=== PATIENT | female | born 1995 | race Two or more races ===

== ENCOUNTER 2024-11-24 14:11 | Outpatient (AMB) | payer MEDICAID, SELFPAY ==
[2024-11-24 14:31] VITALS: BP 119/77; PULSE 77; RESP 16; TEMP 36.2; O2SAT 98
--- NOTE | 2024-11-24 14:31 | AMB.OBINITIA ---
Vital Signs 11/24/24 14:31 Weight 79.379 kg Weight Measurement Method Standing Scale BP 119/77 Blood Pressure Source Automatic Cuff Blood Pressure Location Left Upper Arm Position Sitting Respiration 16 Pulse 77 Pulse Source Monitor Temp 97.2 F Temp Source Oral Pulse Oximetry (%) 98 Oxygen Delivery Method Room Air Allergies/Home Meds Allergies & Medications Allergies Penicillins Allergy (Unknown, Verified 11/24/24 14:34) Medication Reconciliation Vitamin * 1 tab PO QDAY #30 tabs 01/17/14 [Rx Confirmed 11/24/24] blood sugar diagnostic (Blood Glucose Test strips) #10 ea 11/24/24 [Rx] blood-glucose meter #1 ea 11/24/24 [Rx] lancets #100 ea 11/24/24 [Rx] vits no.126-ferrous fum 28 mg iron-folic acid 800 mcg tablet (Classic ) 1 tab PO DAILY 90 days #90 tabs 11/24/24 [Rx] Intake Visit Data Collection New Patient or Established: Established Patient (seen at [facility] within 3 years) Reason for Visit:: OB TRASNFER FROM [place] NO RECORDS IS 36 WEEKS Seen by Clinical Staff ONLY (RN/MA): No Engineering Project Designer Required: Yes Engineering Project Designer's name/title: KARLOS HALL MA Do You Feel Safe at Home: Yes Authorities Contacted: N/A PCP or OBGYN visit in last 3 months: Yes Hx Now: Yes Are you currently on any form of Control: No Pain Present Currently: No Pain Scale Used: Hamilton-Saeed/Numerical Pain scale:: 0 Smoking Status Smoking Status: Never smoker Questionnaires Covid-19 Vaccine Questionnaire Has patient been vacinated for Covid-19 Have you been vacinated for Covid-19: No PHQ-9 PHQ-2 Over the last 2 weeks, how often have you been bothered by any of the following problems? 1. Little interest or pleasure in doing things: not at all 2. Feeling down, depressed, or hopeless: not at all Total score: 0 PHQ-9 3. Trouble falling or staying asleep, or sleeping too much: Not at all 4. Feeling tired or having little energy: Not at all 5. Poor appetite or overeating: Not at all 6. Feeling bad about yourself - or that you are a failure or have let yourself or your family down: Not at all 7. Trouble concentrating on things, such as reading the newspaper or watching television: Not at all 8. Moving or speaking so slowly that other people could have noticed? - Or the opposite - being so fidgety or restless that you have been moving around a lot more than usual: not at all 9. Thoughts that you would be better off or of hurting yourself in some way: Not at all Total score: 0 If you checked off any problems, how difficult have these problems made it for you to do your work, take care of things at home, or get along with other people?: not difficult at all Source: Developed by Drs. Marquis Lugo, Bindu Jeffries, Raghavendra Espinosa and colleagues, with an educational pedro from [employer]. Depression screen completed yes Social History Living Situation History Marital Status: Single Lives With: Family Housing: House Tobacco History Smoking Status: Never smoker Second Hand Smoke Exposure: No Alcohol History Alcohol Intake: Never Domestic Abuse History Do You Feel Safe at Home: Yes OB Initial Visit OB Flowsheet OB Flowsheet Initial Weight: Not Recorded Date <del>?</del> EGA Weight BP Alb Glu CTX Pres Fundal ht FHR Mov Dilation Station Effacement Hx Notes Visit Note 11/24/24 <del>?</del> 35w 2d 79.379 kg 119/77 cephalic 36 145 active one hour GTT is 201 on 11/13/2024 c/w GDM Menstrual History Menstrual reliability: definite Flow: normal Menstrual regularity: irregular Monthly: No Age at menarche: 8 On control pills at conception: No OB History : 2 Para: 1 Hx # Pregnancies: 0 Hx Total # of Abortions (Spontaneous & Elective): 0 # of Living Children: 1 Delivery History 1st : Child's name: WILLIAM BAER date: 01/16/14 sex: female Delivery type: vaginal History of depression before or after : No Infection History & Risk Evaluation History of STDs: none HIV risk evaluation: low risk Hepatitis B risk evaluation: low risk Patient or partner has history of Genital Herpes: No Varicella/chicken pox status: immunized Genetic Screening & History Genetic Screening/Teratology Counseling - Includes patient, baby's father, or anyone in either family with: 1. Patient's age 35 years or older as of estimated date of delivery: No 2. Thalassemia (Syriac, Samoan, Mediterranean, or Background); MCV less than 80: No 3. Neural Tube Defect (Meningomyelocele, Spina Bifida, or Anencephaly): No 4. Congenital Heart Defect: No 5. Down Syndrome: No 6. Raji-Sachs (Ashkenazi Evangelical, Cajun, Chadian [place]): No 7. Isabel Disease (Ashkenazi Evangelical): No 8. Familial Dysautonomia (Ashkenazi Evangelical): No 9. Sickle Cell Disease or Trait (): No 10. Hemophilia or other blood disorders: No 11. Muscular Dystrophy: No 12. Cystic Fibrosis: No 13. Karen's Chorea: No 14. Mental Retardation/Autism: No 15. Other inherited genetic or chromosomal disorder: No 16. Maternal Metabolic Disorder (EG,TYPE 1 Diabetes, PKU): No 17. Patient or baby's father had a child with defects not listed above: No 18. Recurrent loss or a stillbirth: No 19. Medications (including supplements, vitamins, herbs or otc drugs)/illicit/recreational drugs/alcohol since last menstrual period: No 20. Any other: No Infection History 1. Live with someone with TB or exposed to TB: No 2. Rash or viral illness since last menstrual period: No 3. Hepatitis B,C: No Other (see comments) Source: [employer] Office Procedures OBC Clinic LOC & Office Proc's Nursing/Assessment Patient Status: Established Patient OB Clinic Nursing Assessment: Medication Reconciliation, Update PMH in EMR and Vital Signs OB Clinic Coordination of Care: Consent,records obtained, informed consent, Education Simp Pt/Fam, Lab and Imaging orders, Results/Orders obtained and Staff clarify orders Special Needs: Heart tones Established Patient Charge Established Patient Point Assignment: 110 Established Patient Point Charge: EP Level 3 (80-115) Assessment & Plan Diagnosis / Problem List (1) : Status: Acute (2) GDM (gestational diabetes mellitus): Status: Acute Plan Assessment IUP at 35.2 weeks gestational age in a 29 years old additional diagnoses GDM based on 1 hour GTT done 11/13/2024 Plan diet fo GDM ordeed glucometer and lancets and sugar log schedule for learning with Romi labs next vist HbAic refer for weekly NST and for Ob Us now education/counselling on GDM medications PNV and glucometer / lancets and strips GBS today / intake came later / needs Gc and Ct testing next week NST biweekly ordered Follow up 1 week
== END 2024-11-24 14:51 | disposition home or self-care (01) ==
PROVIDERS: PCP Nurse Practitioner; Referring Provider Nurse Practitioner; Supervising Provider Obstetrics & Gynecology; Visit Provider Obstetrics & Gynecology
DX: O09.893 Supervision of other high risk pregnancies, third trimester (principal); O24.410 Gestational diabetes mellitus in pregnancy, diet controlled; Z3A.35 35 weeks gestation of pregnancy
CPT/HCPCS: 99213; G0463

== ENCOUNTER 2024-12-02 13:46 | Outpatient (AMB) | payer MEDICAID, SELFPAY ==
--- NOTE | 2024-12-02 13:56 | AMB.OBVISIT ---
Vital Signs 12/02/24 14:03 Height 1.5 m Height Method Stated Weight 78.075 kg Weight Measurement Method Standing Scale BMI 34.7 BP 120/80 Blood Pressure Source Automatic Cuff Blood Pressure Location Left Upper Arm Position Sitting Respiration 16 Pulse 86 Pulse Source Monitor Temp 97.2 F Temp Source Oral Pulse Oximetry (%) 98 Oxygen Delivery Method Room Air Allergies/Home Meds Allergies & Medications Allergies Penicillins Allergy (Unknown, Verified 12/02/24 14:04) Medication Reconciliation Vitamin * 1 tab PO QDAY #30 tabs 01/17/14 [Rx Confirmed 12/02/24] blood sugar diagnostic (Blood Glucose Test strips) #10 ea 11/24/24 [Rx Confirmed 12/02/24] blood-glucose meter #1 ea 11/24/24 [Rx Confirmed 12/02/24] lancets #100 ea 11/24/24 [Rx Confirmed 12/02/24] vits no.126-ferrous fum 28 mg iron-folic acid 800 mcg tablet (Classic ) 1 tab PO DAILY 90 days #90 tabs 11/24/24 [Rx Confirmed 12/02/24] metformin 500 mg tablet 500 mg PO BID #60 tabs 12/02/24 [Rx] Intake Visit Data Collection New Patient or Established: Established Patient (seen at [facility] within 3 years) Reason for Visit:: CARE Seen by Clinical Staff ONLY (RN/MA): No Administrative Specialist Required: Yes Administrative Specialist's name/title: KARLOS HALL Do You Feel Safe at Home: Yes Authorities Contacted: N/A PCP or OBGYN visit in last 3 months: Yes Hx Now: Yes Are you currently on any form of Control: No Pain Present Currently: No Pain Scale Used: Hamilton-Saeed/Numerical Pain scale:: 0 Smoking Status Smoking Status: Never smoker Immunizations Flu Vaccine in the Last 12 Months: No Flu Vaccine Exclusion Criteria: No Exclusion Criteria Questionnaires Covid-19 Vaccine Questionnaire Has patient been vacinated for Covid-19 Have you been vacinated for Covid-19: Yes PHQ-9 PHQ-2 Over the last 2 weeks, how often have you been bothered by any of the following problems? 1. Little interest or pleasure in doing things: not at all 2. Feeling down, depressed, or hopeless: not at all Total score: 0 PHQ-9 3. Trouble falling or staying asleep, or sleeping too much: Not at all 4. Feeling tired or having little energy: Not at all 5. Poor appetite or overeating: Not at all 6. Feeling bad about yourself - or that you are a failure or have let yourself or your family down: Not at all 7. Trouble concentrating on things, such as reading the newspaper or watching television: Not at all 8. Moving or speaking so slowly that other people could have noticed? - Or the opposite - being so fidgety or restless that you have been moving around a lot more than usual: not at all 9. Thoughts that you would be better off or of hurting yourself in some way: Not at all Total score: 0 Source: Developed by Drs. Marquis Lugo, Bindu Jeffries, Raghavendra Espinosa and colleagues, with an educational pedro from [employer]. Depression screen completed yes Social History Living Situation History Lives With: Family Housing: House Tobacco History Smoking Status: Never smoker Second Hand Smoke Exposure: No Alcohol History Alcohol Intake: Never Domestic Abuse History Do You Feel Safe at Home: Yes Review of Systems Review of Systems Systems Reviewed: All systems reviewed, normal except as documented Care OB Visit Log OB Flowsheet Initial Weight: Not Recorded Date <del>?</del> EGA Weight BP Alb Glu CTX Pres Fundal ht FHR Mov Dilation Station Effacement Hx Notes Visit Note 11/24/24 <del>?</del> 35w 2d 79.379 kg 119/77 cephalic 36 145 active one hour GTT is 201 on 11/13/2024 c/w GDM 12/02/24 <del>?</del> 36w 3d 78.075 kg 120/80 cephalic 37 144 active GBS positive Order HbA1c Glucose log reviewed / elevated postprandials / start metformin 500 mg po BID Start NST biweekly follow up in 1 week SAIRA Calculator Estimated Delivery Date Method Current WG Current Estimate 12/27/24 Manual 36w 3d Notes Visit Date: 12/02/24 Last Updated by: Carrie Oshea MD 36.3 weeks today GDM late diagnosis and was started on glucose monitoring last visit/ her post prandial sugars are high / dietary advice given and started on Metformin 500 mgm po BID start testing as well biweekly NST Her US is scheduled this Sunday at [facility] /Continue sugar log GBS done last visit and is positive Visit Date: 11/24/24 Last Updated by: Carrie Oshea MD Patient had 1 hour GTT she does not need a 3-hour because she is already over 1 2/200 so she got gestational diabetes , order lancets and glucometer and follow up with sugar log 2 para 1, care in [place], no records available, states the EDC is December 27, no prior surgery, denies any medical or obstetrical problems By ultrasound today BPD is consistent with 36 weeks Labs done at [place] on 11/13/2024 c/w i hour GTT is 201 c/w GDM Start on diet and glucose monitoring follow up in 1 week Needs US for weight and also HbAic next visit heart rate is 151 bpm amniotic fluid normal placenta anterior, no previa GBS collected today Vertex presentation on ultrasound needs labs Labor precautions given /Kick count explained labs ordered follow up in 1 week for normal amniot what I can doic fluid on US okay Exam Narrative Physical exam: Alert and oriented x 3 no shortness of breath Pain no chest pain no palpitations Chest clear bilaterally no additional sounds, no wheezing no rales CVS regular rate and rhythm No CVAT Abdomen nontender, normal bowel sounds No guarding no rigidity No hernias Office Procedures OBC Clinic LOC & Office Proc's Nursing/Assessment Patient Status: Established Patient OB Clinic Nursing Assessment: Medication Reconciliation, Update PMH in EMR and Vital Signs OB Clinic Coordination of Care: Complex Care and Chronic Disease 1-5, Consent,records obtained, informed consent, Education Simp Pt/Fam, 1 Ins Authorization, Lab and Imaging orders, Results/Orders obtained and Staff clarify orders Special Needs: Heart tones Established Patient Charge Established Patient Point Assignment: 150 Established Patient Point Charge: EP Level 4 (120-155) Assessment & Plan Diagnosis / Problem List (1) GDM (gestational diabetes mellitus): Status: Acute (2) : Status: Acute (3) Late care affecting in third trimester: Status: Acute Assessment and Plan: 36.3 weeks today GDM late diagnosis and was started on glucose monitoring last visit/ her post prandial sugars are high / dietary advice given and started on Metformin 500 mgm po BID start testing as well biweekly NST Her US is scheduled this Sunday at [facility] /Continue sugar log GBS done last visit and is positive and will need GBS prophylaxis in labor Follow up in 1 week Additional Plan Follow Up: 1 1 Week
[2024-12-02 14:03] VITALS: BP 120/80; PULSE 86; RESP 16; TEMP 36.2; O2SAT 98; BMI 34.7
== END 2024-12-02 14:20 | disposition home or self-care (01) ==
LOC: HODSOBC 13:46
PROVIDERS: Supervising Provider Obstetrics & Gynecology; Visit Provider Obstetrics & Gynecology
DX: O09.33 Supervision of pregnancy with insufficient antenatal care, third trimester (principal); O09.893 Supervision of other high risk pregnancies, third trimester; O24.415 Gestational diabetes mellitus in pregnancy, controlled by oral hypoglycemic drugs; O99.820 Streptococcus B carrier state complicating pregnancy; Z3A.36 36 weeks gestation of pregnancy; Z88.0 Allergy status to penicillin
CPT/HCPCS: 99214; G0463

== ENCOUNTER 2024-12-11 12:58 | Outpatient (AMB) | payer MEDICAID, SELFPAY ==
[2024-12-11 13:05] VITALS: BP 109/75; PULSE 73; RESP 18; TEMP 36.4; O2SAT 98; BMI 34.5
--- NOTE | 2024-12-11 13:05 | AMB.OBVISIT ---
Vital Signs 12/11/24 13:05 Height 1.5 m Height Method Stated Weight 77.791 kg Weight Measurement Method Standing Scale BMI 34.5 BP 109/75 Blood Pressure Source Automatic Cuff Blood Pressure Location Right Upper Arm Position Sitting Respiration 18 Pulse 73 Pulse Source Monitor Temp 97.5 F Temp Source Temporal Artery Scan Pulse Oximetry (%) 98 Oxygen Delivery Method Room Air Allergies/Home Meds Allergies & Medications Allergies Penicillins Allergy (Unknown, Verified 12/11/24 13:06) Medication Reconciliation Vitamin * 1 tab PO QDAY #30 tabs 01/17/14 [Rx Confirmed 12/11/24] blood sugar diagnostic (Blood Glucose Test strips) #10 ea 11/24/24 [Rx Confirmed 12/11/24] blood-glucose meter #1 ea 11/24/24 [Rx Confirmed 12/11/24] lancets #100 ea 11/24/24 [Rx Confirmed 12/11/24] vits no.126-ferrous fum 28 mg iron-folic acid 800 mcg tablet (Classic ) 1 tab PO DAILY 90 days #90 tabs 11/24/24 [Rx Confirmed 12/11/24] metformin 500 mg tablet 500 mg PO BID #60 tabs 12/02/24 [Rx Confirmed 12/11/24] Intake Visit Data Collection New Patient or Established: Established Patient (seen at [facility] within 3 years) Reason for Visit:: OBC Seen by Clinical Staff ONLY (RN/MA): Yes Machine Heel Seat Laster Required: Yes Machine Heel Seat Laster's name/title: KARLOS HALL MA Do You Feel Safe at Home: Yes Authorities Contacted: N/A PCP or OBGYN visit in last 3 months: Yes Date of Last PCP or OBGYN visit: 12/11/24 Hx Now: Yes Are you currently on any form of Control: No Pain Present Currently: Yes Pain Location: Back Pain Scale Used: Hamilton-Saeed/Numerical Pain scale:: 2 Smoking Status Smoking Status: Never smoker Immunizations Flu Vaccine in the Last 12 Months: No Flu Vaccine Exclusion Criteria: No Exclusion Criteria Questionnaires Covid-19 Vaccine Questionnaire Has patient been vacinated for Covid-19 Have you been vacinated for Covid-19: No PHQ-9 PHQ-2 Over the last 2 weeks, how often have you been bothered by any of the following problems? 1. Little interest or pleasure in doing things: not at all 2. Feeling down, depressed, or hopeless: not at all Total score: 0 PHQ-9 3. Trouble falling or staying asleep, or sleeping too much: Not at all 4. Feeling tired or having little energy: Not at all 5. Poor appetite or overeating: Not at all 6. Feeling bad about yourself - or that you are a failure or have let yourself or your family down: Not at all 7. Trouble concentrating on things, such as reading the newspaper or watching television: Not at all 8. Moving or speaking so slowly that other people could have noticed? - Or the opposite - being so fidgety or restless that you have been moving around a lot more than usual: not at all 9. Thoughts that you would be better off or of hurting yourself in some way: Not at all Total score: 0 If you checked off any problems, how difficult have these problems made it for you to do your work, take care of things at home, or get along with other people?: not difficult at all Source: Developed by Drs. Marquis Lugo, Bindu Jeffries, Raghavendra Espinosa and colleagues, with an educational pedro from [employer]. Depression screen completed yes Social History Living Situation History Marital Status: Lives With: Family Housing: House Tobacco History Smoking Status: Never smoker Second Hand Smoke Exposure: No Alcohol History Alcohol Intake: Never Domestic Abuse History Do You Feel Safe at Home: Yes Care OB Visit Log OB Flowsheet Initial Weight: Not Recorded Date <del>?</del> EGA Weight BP Alb Glu CTX Pres Fundal ht FHR Mov Dilation Station Effacement Hx Notes Visit Note 11/24/24 <del>?</del> 35w 2d 79.379 kg 119/77 cephalic 36 145 active one hour GTT is 201 on 11/13/2024 c/w GDM 12/02/24 <del>?</del> 36w 3d 78.075 kg 120/80 cephalic 37 144 active GBS positive Order HbA1c Glucose log reviewed / elevated postprandials / start metformin 500 mg po BID Start NST biweekly follow up in 1 week 12/11/24 <del>?</del> 37w 5d 77.791 kg 109/75 cephalic 38 150 active 0 -3 0 SAIRA Calculator Estimated Delivery Date Method Current WG Current Estimate 12/27/24 Manual 37w 5d Notes Visit Date: 12/11/24 Last Updated by: Carrie Oshea MD 36.3 weeks today GDM late diagnosis and was started on glucose monitoring last visit/ her post prandial sugars are high / dietary advice given and started on Metformin 500 mgm po BID start testing as well biweekly NST / BPP today was 09/19 / Order US for EFW at radiology and also called L&D to add EFW to next BPP as patient is high risk she states her fastings are around 90's & Post prandials are between 120 to 140 . she forgot to bring the sugar log She is closed thick and high today Needs US for EFW from radiology . Will order Her US is scheduled this Sunday at [facility] /Continue sugar log GBS done last visit and is positive Visit Date: 12/02/24 Last Updated by: Carrie Oshea MD 36.3 weeks today GDM late diagnosis and was started on glucose monitoring last visit/ her post prandial sugars are high / dietary advice given and started on Metformin 500 mgm po BID start testing as well biweekly NST Her US is scheduled this Sunday at [facility] /Continue sugar log GBS done last visit and is positive Visit Date: 11/24/24 Last Updated by: Carrie Oshea MD Patient had 1 hour GTT she does not need a 3-hour because she is already over 1 2/200 so she got gestational diabetes , order lancets and glucometer and follow up with sugar log 2 para 1, care in [place], no records available, states the EDC is December 27, no prior surgery, denies any medical or obstetrical problems By ultrasound today BPD is consistent with 36 weeks Labs done at [place] on 11/13/2024 c/w i hour GTT is 201 c/w GDM Start on diet and glucose monitoring follow up in 1 week Needs US for weight and also HbAic next visit heart rate is 151 bpm amniotic fluid normal placenta anterior, no previa GBS collected today Vertex presentation on ultrasound needs labs Labor precautions given /Kick count explained labs ordered follow up in 1 week for normal amniot what I can doic fluid on US okay Office Procedures OBC Clinic LOC & Office Proc's Nursing/Assessment Patient Status: Established Patient OB Clinic Nursing Assessment: Medication Reconciliation, Update PMH in EMR and Vital Signs OB Clinic Coordination of Care: Complex Care and Chronic Disease 1-5, Education Complex Pt/Fam, Consent,records obtained, informed consent and Staff clarify orders Special Needs: Heart tones Established Patient Charge Established Patient Point Assignment: 120 Established Patient Point Charge: EP Level 4 (120-155) Assessment & Plan Diagnosis / Problem List (1) GDM (gestational diabetes mellitus): Status: Acute Qualifiers: Gestational diabetes mellitus control: oral hypoglycemic-controlled Trimester: third trimester Qualified Code(s): O24.415 - Gestational diabetes mellitus in , controlled by oral hypoglycemic drugs (2) Late care affecting in third trimester: Status: Acute Additional Plan add EFW to next US Kick count Biweekly NST/BPP and follow up in 1 week labor precautions Ordered Ob Us for EFW Follow Up: 1 Week
== END 2024-12-11 13:47 | disposition home or self-care (01) ==
LOC: HODSOBC 12:58
PROVIDERS: Supervising Provider Obstetrics & Gynecology; Visit Provider Obstetrics & Gynecology
DX: O09.893 Supervision of other high risk pregnancies, third trimester (principal); O24.415 Gestational diabetes mellitus in pregnancy, controlled by oral hypoglycemic drugs; O09.33 Supervision of pregnancy with insufficient antenatal care, third trimester; Z3A.37 37 weeks gestation of pregnancy; Z88.0 Allergy status to penicillin
CPT/HCPCS: 99214; G0463

== ENCOUNTER 2024-12-15 08:55 | Outpatient (AMB) | payer MEDICAID, SELFPAY ==
--- NOTE | 2024-12-15 09:14 | OBCLNT_ITS ---
Vital Signs 12/15/24 09:15 12/15/24 09:41 Height 1.5 m Height Method Stated Weight 79.095 kg Weight Measurement Method Standing Scale BMI 35.1 BP 117/76 117/76 Blood Pressure Source Automatic Cuff Blood Pressure Location Right Upper Arm Position Sitting Respiration 18 18 Pulse 83 83 Pulse Source Monitor Temp 97.4 F 97.4 F Temp Source Temporal Artery Scan Pulse Oximetry (%) 98 98 Oxygen Delivery Method Room Air Allergies/Home Meds Allergies & Medications Allergies Penicillins Allergy (Unknown, Verified 12/15/24 09:16) Medication Reconciliation Vitamin * 1 tab PO QDAY #30 tabs 01/17/14 [Rx Confirmed 12/15/24] blood sugar diagnostic (Blood Glucose Test strips) #10 ea 11/24/24 [Rx Confirmed 12/15/24] blood-glucose meter #1 ea 11/24/24 [Rx Confirmed 12/15/24] lancets #100 ea 11/24/24 [Rx Confirmed 12/15/24] vits no.126-ferrous fum 28 mg iron-folic acid 800 mcg tablet (Classic ) 1 tab PO DAILY 90 days #90 tabs 11/24/24 [Rx Confirmed 12/15/24] metformin 500 mg tablet 500 mg PO BID #60 tabs 12/02/24 [Rx Confirmed 12/15/24] blood sugar diagnostic (Blood Glucose Test strips) #30 ea 12/15/24 [Rx] Intake Visit Data Collection New Patient or Established: Established Patient (seen at [facility] within 3 years) Reason for Visit:: OBC Seen by Clinical Staff ONLY (RN/MA): No Plant Floor Automation Manager Required: Yes Plant Floor Automation Manager's name/title: KARLOS HALL MA Do You Feel Safe at Home: Yes Authorities Contacted: N/A PCP or OBGYN visit in last 3 months: Yes Date of Last PCP or OBGYN visit: 12/11/24 Hx Now: Yes Are you currently on any form of Control: No Pain Present Currently: No Pain Scale Used: Hamilton-Saeed/Numerical Pain scale:: 0 Smoking Status Smoking Status: Never smoker Immunizations Flu Vaccine in the Last 12 Months: No Flu Vaccine Exclusion Criteria: No Exclusion Criteria Questionnaires Covid-19 Vaccine Questionnaire Has patient been vacinated for Covid-19 Have you been vacinated for Covid-19: No PHQ-9 PHQ-2 Over the last 2 weeks, how often have you been bothered by any of the following problems? 1. Little interest or pleasure in doing things: not at all 2. Feeling down, depressed, or hopeless: not at all Total score: 0 PHQ-9 3. Trouble falling or staying asleep, or sleeping too much: Not at all 4. Feeling tired or having little energy: Not at all 5. Poor appetite or overeating: Not at all 6. Feeling bad about yourself - or that you are a failure or have let yourself or your family down: Not at all 7. Trouble concentrating on things, such as reading the newspaper or watching television: Not at all 8. Moving or speaking so slowly that other people could have noticed? - Or the opposite - being so fidgety or restless that you have been moving around a lot more than usual: not at all 9. Thoughts that you would be better off or of hurting yourself in some way: Not at all Total score: 0 If you checked off any problems, how difficult have these problems made it for you to do your work, take care of things at home, or get along with other people?: not difficult at all Source: Developed by Drs. Marquis Lugo, Bindu Jeffries, Raghavendra Espinosa and colleagues, with an educational pedro from [employer]. Depression screen completed yes Social History Living Situation History Marital Status: Lives With: Family Housing: House Tobacco History Smoking Status: Never smoker Second Hand Smoke Exposure: No Alcohol History Alcohol Intake: Never Domestic Abuse History Do You Feel Safe at Home: Yes Care OB Visit Log OB Flowsheet Initial Weight: Not Recorded Date -?-?-?-?-?-?-?-?-?-?-?-?- EGA Weight BP Alb Glu CTX Pres Fundal ht FHR Mov Dilation Station Effacement Hx Notes Visit Note 11/24/24 -?-?-?-?-?-?-?-?-?-?-?-?- 35w 2d 79.379 kg 119/77 cephalic 36 145 active one hour GTT is 201 on 11/13/2024 c/w GDM 12/02/24 -?-?-?-?-?-?-?-?-?-?-?-?- 36w 3d 78.075 kg 120/80 cephalic 37 144 active GBS positive Order HbA1c Glucose log reviewed / elevated postpran dials / start metformin 500 mg po BID Start NST biweekly follow up in 1 week 12/11/24 -?-?-?-?-?-?-?-?-?-?-?-?- 37w 5d 77.791 kg 109/75 cephalic 38 150 active 0 -3 0 12/15/24 -?-?-?-?-?-?-?-?-?-?-?-?- 38w 2d 79.095 kg 117/76 117/76 cephalic 40 146 active SAIRA Calculator Estimated Delivery Date Method Current WG Current Estimate 12/27/24 Manual 38w 2d Notes Visit Date: 12/15/24 Last Updated by: Homer Oshea MD 38.2 weeks today GDM late diagnosis and was started on glucose monitoring / her post prandial sugars are high / dietary advice given and started on Metformin 500 mgm po BID start testing as well biweekly NST / BPP today was 09/19 / Order US for EFW at radiology and also called L&D to add EFW to next BPP as patient is high risk size is LGA Plan IOL at 39 weeks / in the books for 12/22/2024 / Biweekly NST and BPP and also Complete ob today / refill test strips [facility] [address] [place] [address] [facility] Report Signed Patient: STELLA CORRAL [facility]. Record#: [id number] Birthdate: 1995 Age/Sex: 29 / F Location: [facility] Attending Dr: Homer Oshea MD Ordering Physician: HOMER OSHEA MD Date of Service: 12/11/24 Procedure(s): US OB biophysical profile Accession Number(s): [id number] cc: HOMER OSHEA MD; Keven Duff MD; Linda Lee NP~ Examination: Biophysical profile, ultrasound Date and time of exam: December 11, 2024, 1043 hours INDICATIONS: Diagnosis gestational diabetes Technique: Multiple transabdominal sonographic images of the pelvis abdomen obtained. Attention is directed to the breathing movement, gross body movement, amniotic fluid volume and tone. Findings: Amniotic fluid index 7.3 cm Total biophysical profile is 8 of 8. breathing movement is 2. Gross body movement is 2. tone is 2. Qualitative amniotic fluid volume is 2 Impression: Biophysical profile is 8 of 8. Dictated By: Keven Duff MD Signed By: <Electronically signed by Keven Duff MD in OV> 12/11/24 1148 DD/ 1148 TD/TT: 12/11/24 1148 School Operations Manager: TWM she states her fastings are around 90's & Post prandials are between 120 to 140 . she forgot to bring the sugar log She is closed thick and high on 12/11/2024 Needs US for EFW from radiology . Will order Her US is scheduled this Sunday at [facility] /Continue sugar log GBS done last visit and is positive Visit Date: 12/02/24 Last Updated by: Homer Oshea MD 38.2 weeks today GDM late diagnosis and was started on glucose monitoring / her post prandial sugars are high / dietary advice given and started on Metformin 500 mgm po BID start testing as well biweekly NST Her US is scheduled this Sunday at [facility] /Continue sugar log GBS done last visit and is positive Visit Date: 11/24/24 Last Updated by: Homer Oshea MD Patient had 1 hour GTT she does not need a 3-hour because she is already over 1 2/200 so she got gestational diabetes , order lancets and glucometer and follow up with sugar log 2 para 1, care in [place], no records available, states the EDC is December 27, no prior surgery, denies any medical or obstetrical problems By ultrasound today BPD is consistent with 36 weeks Labs done at [place] on 11/13/2024 c/w i hour GTT is 201 c/w GDM Start on diet and glucose monitoring follow up in 1 week Needs US for weight and also HbAic next visit heart rate is 151 bpm amniotic fluid normal placenta anterior, no previa GBS collected today Vertex presentation on ultrasound needs labs Labor precautions given /Kick count explained labs ordered follow up in 1 week for normal amniotic fluid on US okay Visit Date: 12/11/24 Last Updated by: Homer Oshea MD 36.3 weeks today GDM late diagnosis and was started on glucose monitoring last visit/ her post prandial sugars are high / dietary advice given and started on Metformin 500 mgm po BID start testing as well biweekly NST / BPP today was 09/19 / Order US for EFW at radiology and also called L&D to add EFW to next BPP as patient is high risk she states her fastings are around 90's & Post prandials are between 120 to 140 . she forgot to bring the sugar log She is closed thick and high today Needs US for EFW from radiology . Will order Her US is scheduled this Sunday at [facility] /Continue sugar log GBS done last visit and is positive Visit Date: 12/02/24 Last Updated by: Homer Oshea MD 36.3 weeks today GDM late diagnosis and was started on glucose monitoring last visit/ her post prandial sugars are high / dietary advice given and started on Metformin 500 mgm po BID start testing as well biweekly NST Her US is scheduled this Sunday at [facility] /Continue sugar log GBS done last visit and is positive Visit Date: 11/24/24 Last Updated by: Homer Oshea MD Patient had 1 hour GTT she does not need a 3-hour because she is already over 1 2/200 so she got gestational diabetes , order lancets and glucometer and follow up with sugar log 2 para 1, care in [place], no records available, states the EDC is December 27, no prior surgery, denies any medical or obstetrical problems By ultrasound today BPD is consistent with 36 weeks Labs done at [place] on 11/13/2024 c/w i hour GTT is 201 c/w GDM Start on diet and glucose monitoring follow up in 1 week Needs US for weight and also HbAic next visit heart rate is 151 bpm amniotic fluid normal placenta anterior, no previa GBS collected today Vertex presentation on ultrasound needs labs Labor precautions given /Kick count explained labs ordered follow up in 1 week for normal amniot what I can doic fluid on US okay Office Procedures OBC Clinic LOC & Office Proc's Nursing/Assessment Patient Status: Established Patient OB Clinic Nursing Assessment: Medication Reconciliation, Update PMH in EMR and Vital Signs OB Clinic Coordination of Care: Complex Care and Chronic Disease 1-5, Education Complex Pt/Fam, Consent,records obtained, informed consent, Results/Orders obtained and Staff clarify orders Special Needs: Heart tones Established Patient Charge Established Patient Point Assignment: 125 Established Patient Point Charge: EP Level 4 (120-155)
[2024-12-15 09:15] VITALS: BP 117/76; PULSE 83; RESP 18; TEMP 36.3; O2SAT 98; BMI 35.1
--- NOTE | 2024-12-15 09:38 | AMB.OBVISIT ---
Vital Signs 12/15/24 09:15 12/15/24 09:41 Height 1.5 m Height Method Stated Weight 79.095 kg Weight Measurement Method Standing Scale BMI 35.1 BP 117/76 117/76 Blood Pressure Source Automatic Cuff Blood Pressure Location Right Upper Arm Position Sitting Respiration 18 18 Pulse 83 83 Pulse Source Monitor Temp 97.4 F 97.4 F Temp Source Temporal Artery Scan Pulse Oximetry (%) 98 98 Oxygen Delivery Method Room Air Allergies/Home Meds Allergies & Medications Allergies Penicillins Allergy (Unknown, Verified 12/15/24 09:16) Medication Reconciliation Vitamin * 1 tab PO QDAY #30 tabs 01/17/14 [Rx Confirmed 12/15/24] blood sugar diagnostic (Blood Glucose Test strips) #10 ea 11/24/24 [Rx Confirmed 12/15/24] blood-glucose meter #1 ea 11/24/24 [Rx Confirmed 12/15/24] lancets #100 ea 11/24/24 [Rx Confirmed 12/15/24] vits no.126-ferrous fum 28 mg iron-folic acid 800 mcg tablet (Classic ) 1 tab PO DAILY 90 days #90 tabs 11/24/24 [Rx Confirmed 12/15/24] metformin 500 mg tablet 500 mg PO BID #60 tabs 12/02/24 [Rx Confirmed 12/15/24] Intake Visit Data Collection New Patient or Established: Established Patient (seen at [facility] within 3 years) Reason for Visit:: care Manager Winter Required: Yes Do You Feel Safe at Home: Yes Smoking Status Smoking Status: Never smoker Questionnaires Covid-19 Vaccine Questionnaire Has patient been vacinated for Covid-19 Have you been vacinated for Covid-19: No PHQ-9 PHQ-2 Over the last 2 weeks, how often have you been bothered by any of the following problems? 1. Little interest or pleasure in doing things: not at all PHQ-9 3. Trouble falling or staying asleep, or sleeping too much: Not at all 4. Feeling tired or having little energy: Not at all 5. Poor appetite or overeating: Not at all 6. Feeling bad about yourself - or that you are a failure or have let yourself or your family down: Not at all 7. Trouble concentrating on things, such as reading the newspaper or watching television: Not at all 8. Moving or speaking so slowly that other people could have noticed? - Or the opposite - being so fidgety or restless that you have been moving around a lot more than usual: not at all Total score: 0 If you checked off any problems, how difficult have these problems made it for you to do your work, take care of things at home, or get along with other people?: not difficult at all Source: Developed by Drs. Marquis Lugo, Bindu Jeffries, Raghavendra Espinosa and colleagues, with an educational pedro from [employer]. Social History Living Situation History Marital Status: Lives With: Family Housing: House Tobacco History Smoking Status: Never smoker Second Hand Smoke Exposure: No Alcohol History Alcohol Intake: Never Domestic Abuse History Do You Feel Safe at Home: Yes History of Present Illness HPI Narrative 29 years old at 38.2 weeks today GDM on Metformin and diet and not keeping her sugar logs states ran out of strips Plan Ob US today during her NST and BPP for EFW Review of Systems Review of Systems Systems Reviewed: All systems reviewed, normal except as documented (feels pelvic pressure ) Care OB Visit Log OB Flowsheet Initial Weight: Not Recorded Date <del>?</del> EGA Weight BP Alb Glu CTX Pres Fundal ht FHR Mov Dilation Station Effacement Hx Notes Visit Note 11/24/24 <del>?</del> 35w 2d 79.379 kg 119/77 cephalic 36 145 active one hour GTT is 201 on 11/13/2024 c/w GDM 12/02/24 <del>?</del> 36w 3d 78.075 kg 120/80 cephalic 37 144 active GBS positive Order HbA1c Glucose log reviewed / elevated postprandials / start metformin 500 mg po BID Start NST biweekly follow up in 1 week 12/11/24 <del>?</del> 37w 5d 77.791 kg 109/75 cephalic 38 150 active 0 -3 0 12/15/24 <del>?</del> 38w 2d 79.095 kg 117/76 117/76 cephalic 40 146 active SAIRA Calculator Estimated Delivery Date Method Current WG Current Estimate 12/27/24 Manual 38w 2d Notes Visit Date: 12/15/24 Last Updated by: Homer Oshea MD 38.2 weeks today GDM late diagnosis and was started on glucose monitoring / her post prandial sugars are high / dietary advice given and started on Metformin 500 mgm po BID start testing as well biweekly NST / BPP today was 09/19 / Order US for EFW at radiology and also called L&D to add EFW to next BPP as patient is high risk size is LGA Plan IOL at 39 weeks / in the books for 12/22/2024 / Biweekly NST and BPP and also Complete ob today / refill test strips [facility] [address] [place] [address] [facility] Report Signed Patient: STELLA CORRAL. Record#: [id number] Birthdate: 1995 Age/Sex: 29 / F Location: [facility] Attending Dr: Homer Oshea MD Ordering Physician: HOMER OSHEA MD Date of Service: 12/11/24 Procedure(s): US OB biophysical profile Accession Number(s): [id number] cc: HOMER OSHEA MD; Keven Duff MD; Linda Lee NP~ Examination: Biophysical profile, ultrasound Date and time of exam: December 11, 2024, 1043 hours INDICATIONS: Diagnosis gestational diabetes Technique: Multiple transabdominal sonographic images of the pelvis abdomen obtained. Attention is directed to the breathing movement, gross body movement, amniotic fluid volume and tone. Findings: Amniotic fluid index 7.3 cm Total biophysical profile is 8 of 8. breathing movement is 2. Gross body movement is 2. tone is 2. Qualitative amniotic fluid volume is 2 Impression: Biophysical profile is 8 of 8. Dictated By: Keven Duff MD Signed By: <Electronically signed by Keven Duff MD in OV> 12/11/24 1148 DD/ 1148 TD/TT: 12/11/24 1148 Nick[place]: TWAniket she states her fastings are around 90's & Post prandials are between 120 to 140 . she forgot to bring the sugar log She is closed thick and high on 12/11/2024 Needs US for EFW from radiology . Will order Her US is scheduled this Sunday at [facility] /Continue sugar log GBS done last visit and is positive Visit Date: 12/02/24 Last Updated by: Homer Oshea MD 38.2 weeks today GDM late diagnosis and was started on glucose monitoring / her post prandial sugars are high / dietary advice given and started on Metformin 500 mgm po BID start testing as well biweekly NST Her US is scheduled this Sunday at [facility] /Continue sugar log GBS done last visit and is positive Visit Date: 11/24/24 Last Updated by: Homer Oshea MD Patient had 1 hour GTT she does not need a 3-hour because she is already over 1 2/200 so she got gestational diabetes , order lancets and glucometer and follow up with sugar log 2 para 1, care in [place], no records available, states the EDC is December 27, no prior surgery, denies any medical or obstetrical problems By ultrasound today BPD is consistent with 36 weeks Labs done at [place] on 11/13/2024 c/w i hour GTT is 201 c/w GDM Start on diet and glucose monitoring follow up in 1 week Needs US for weight and also HbAic next visit heart rate is 151 bpm amniotic fluid normal placenta anterior, no previa GBS collected today Vertex presentation on ultrasound needs labs Labor precautions given /Kick count explained labs ordered follow up in 1 week for normal amniotic fluid on US okay Visit Date: 12/11/24 Last Updated by: Homer Oshea MD 36.3 weeks today GDM late diagnosis and was started on glucose monitoring last visit/ her post prandial sugars are high / dietary advice given and started on Metformin 500 mgm po BID start testing as well biweekly NST / BPP today was 09/19 / Order US for EFW at radiology and also called L&D to add EFW to next BPP as patient is high risk she states her fastings are around 90's & Post prandials are between 120 to 140 . she forgot to bring the sugar log She is closed thick and high today Needs US for EFW from radiology . Will order Her US is scheduled this Sunday at [facility] /Continue sugar log GBS done last visit and is positive Visit Date: 12/02/24 Last Updated by: Homer Oshea MD 36.3 weeks today GDM late diagnosis and was started on glucose monitoring last visit/ her post prandial sugars are high / dietary advice given and started on Metformin 500 mgm po BID start testing as well biweekly NST Her US is scheduled this Sunday at [facility] /Continue sugar log GBS done last visit and is positive Visit Date: 11/24/24 Last Updated by: Homer Oshea MD Patient had 1 hour GTT she does not need a 3-hour because she is already over 1 2/200 so she got gestational diabetes , order lancets and glucometer and follow up with sugar log 2 para 1, care in [place], no records available, states the EDC is December 27, no prior surgery, denies any medical or obstetrical problems By ultrasound today BPD is consistent with 36 weeks Labs done at [place] on 11/13/2024 c/w i hour GTT is 201 c/w GDM Start on diet and glucose monitoring follow up in 1 week Needs US for weight and also HbAic next visit heart rate is 151 bpm amniotic fluid normal placenta anterior, no previa GBS collected today Vertex presentation on ultrasound needs labs Labor precautions given /Kick count explained labs ordered follow up in 1 week for normal amniot what I can doic fluid on US okay
[2024-12-15 09:41] VITALS: BP 117/76; PULSE 83; RESP 18; TEMP 36.3; O2SAT 98
== END 2024-12-15 09:48 | disposition home or self-care (01) ==
LOC: HODSOBC 08:55
PROVIDERS: Supervising Provider Obstetrics & Gynecology; Visit Provider Obstetrics & Gynecology
DX: O09.893 Supervision of other high risk pregnancies, third trimester (principal); O24.415 Gestational diabetes mellitus in pregnancy, controlled by oral hypoglycemic drugs; Z3A.38 38 weeks gestation of pregnancy; Z88.0 Allergy status to penicillin
CPT/HCPCS: 99214; G0463

== ENCOUNTER 2024-12-18 10:43 | Outpatient (RCR) | payer MEDICAID, SELFPAY ==
--- NOTE | 2024-12-04 11:01 | XR_ITS ---
Examination: Biophysical profile, ultrasound Date and time of exam: December 04, 2024, 1102 hours INDICATIONS: Diagnosis gestational diabetes Technique: Multiple transabdominal sonographic images of the pelvis abdomen obtained. Attention is directed to the breathing movement, gross body movement, amniotic fluid volume and tone. Findings: Amniotic fluid index 15.9 cm Total biophysical profile is 8 of 8. breathing movement is 2. Gross body movement is 2. tone is 2. Qualitative amniotic fluid volume is 2 Impression: Biophysical profile is 8 of 8.
[2024-12-04 11:51] VITALS: BP 121/82; PULSE 73; RESP 18; TEMP 36.6
--- NOTE | 2024-12-08 10:57 | XR_ITS ---
Examination: Biophysical profile, ultrasound Date and time of exam: December 08, 2024, 1126 hours INDICATIONS: Diagnosis gestational diabetes Technique: Multiple transabdominal sonographic images of the pelvis abdomen obtained. Attention is directed to the breathing movement, gross body movement, amniotic fluid volume and tone. Findings: Amniotic fluid index 6.8 cm Total biophysical profile is 8 of 8. breathing movement is 2. Gross body movement is 2. tone is 2. Qualitative amniotic fluid volume is 2 Impression: Biophysical profile is 8 of 8.
[2024-12-08 11:46] VITALS: BP 106/65; PULSE 77; RESP 16; TEMP 36.9
--- NOTE | 2024-12-11 10:58 | XR_ITS ---
Examination: Biophysical profile, ultrasound Date and time of exam: December 11, 2024, 1043 hours INDICATIONS: Diagnosis gestational diabetes Technique: Multiple transabdominal sonographic images of the pelvis abdomen obtained. Attention is directed to the breathing movement, gross body movement, amniotic fluid volume and tone. Findings: Amniotic fluid index 7.3 cm Total biophysical profile is 8 of 8. breathing movement is 2. Gross body movement is 2. tone is 2. Qualitative amniotic fluid volume is 2 Impression: Biophysical profile is 8 of 8.
[2024-12-11 12:12] VITALS: BP 122/76; PULSE 71; RESP 16; TEMP 36.7
--- NOTE | 2024-12-15 08:23 | XR_ITS ---
EXAMINATION: age Limited TECHNIQUE: Limited transabdominal sonographic images pelvis Date and time: December 15, 2024, 10:50 a.m. INDICATIONS: Unknown weight FINDINGS: Viable intrauterine gestation. Cephalic presentation. Estimated weight 3010.8 g Estimated age 36 weeks 5 days Cardiac motion 155 bpm IMPRESSION: Viable intrauterine gestation cephalic presentation Estimated weight 3010.8 g
--- NOTE | 2024-12-15 10:32 | XR_ITS ---
Examination: Biophysical profile, ultrasound Date and time of exam: December 15, 2024, 10:50 a.m. INDICATIONS: Diagnosis gestational diabetes Technique: Multiple transabdominal sonographic images of the pelvis abdomen obtained. Attention is directed to the breathing movement, gross body movement, amniotic fluid volume and tone. Findings: Amniotic fluid index 11.8 cm Total biophysical profile is 8 of 8. breathing movement is 2. Gross body movement is 2. tone is 2. Qualitative amniotic fluid volume is 2 Impression: Biophysical profile is 8 of 8.
[2024-12-15 11:18] VITALS: BP 105/65; PULSE 82; RESP 16; TEMP 36.7
--- NOTE | 2024-12-18 10:54 | XR_ITS ---
Examination: Biophysical profile, ultrasound Date and time of exam: 12/18/2024 at 11:18 a.m. INDICATION: Biweekly NST and BPP due to GDM. Comparison US BPP 12/15/2024 Technique: Multiple transabdominal sonographic images of the pelvis abdomen obtained. Attention is directed to the breathing movement, gross body movement, amniotic fluid volume and tone. Findings: Single live IUP in cephalic position. Total biophysical profile is 8 of 8. breathing movement is 2. Gross body movement is 2. tone is 2. Qualitative amniotic fluid volume is 2 VIVIANE: 7.2 cm. FHR: 153 bpm. Impression: Biophysical profile is 8 of 8 as before.
[2024-12-18 11:49] VITALS: BP 138/80; PULSE 91; RESP 16; TEMP 36.7
== END 2024-12-18 23:59 | disposition home or self-care (01) ==
LOC: S4S1 10:43
PROVIDERS: PCP Nurse Practitioner; Referring Provider Obstetrics & Gynecology; Visit Provider Obstetrics & Gynecology
DX: O24.415 Gestational diabetes mellitus in pregnancy, controlled by oral hypoglycemic drugs (principal); Z3A.38 38 weeks gestation of pregnancy
CPT/HCPCS: 59025; 76815; 76819

== ENCOUNTER 2024-12-18 21:43 | Observation (INO) | payer MEDICAID, SELFPAY ==
[2024-12-18] VITALS (12 sets, daily range): BP systolic 115–134; BP diastolic 70–91; PULSE 73–101; RESP 18–98; TEMP 36.7; O2SAT 98–99; BMI 36.5
[2024-12-19 00:05] VITALS: BP 123/82; PULSE 73
[2024-12-19 00:07] VITALS: BP 123/81; PULSE 81
== END 2024-12-19 00:13 | disposition home or self-care (01) ==
PROVIDERS: Admitting Provider Obstetrics & Gynecology; Visit Provider Obstetrics & Gynecology
DX: O47.1 False labor at or after 37 completed weeks of gestation (principal); Z3A.38 38 weeks gestation of pregnancy
CPT/HCPCS: 59025; 59899

== ENCOUNTER 2024-12-19 04:22 | Inpatient (IN) | payer MEDICAID, SELFPAY ==
[2024-12-19] VITALS (22 sets, daily range): BP systolic 103–136; BP diastolic 54–88; PULSE 43–167; RESP 18–98; TEMP 36.7–37; O2SAT 76–100; BMI 37.2
[2024-12-19] MEDS: RINGERS LACTATED 1000 ML 1,000 ML 100 ML IV ×2 (05:05→05:29)
[2024-12-19] MEDS: MINERAL OIL 30 ML UDC TOP (05:30)
[2024-12-19] MEDS: OXYTOCIN in NS 20 units 20 UNIT/1,000 ML BAG 125 UNIT IV (05:50)
[2024-12-19] MEDS: LIDOCAINE HCL 1% 20 ML VIAL INFL (05:54)
[2024-12-19] MEDS: BENZO/LANO/ALOE (Dermoplast) 60 GM CAN 1 SPRAY TOP (05:55)
--- NOTE | 2024-12-19 06:11 | ESHP_ITS ---
Documentation for date of: 12/19/24 OB Labor/Induct. HPI History of Present Illness : 2 Term pregnancies: 1 pregnancies: 0 Living children: 1 History of Abortions: Spontaneous and Elective: 0 History of Vaginal deliveries: 1 History of sections: No History of : No SAIRA: 12/27/24 Gestational Age (weeks): 38 Gestational Age (days): 6 History of present illness: came in labor at 8 to 9 cm dilation and is GDM on diet and metformin History of Present Dating criteria: based on LMP only Adequate Care: No Obstetrical complications: gestational diabetes Labs Labs: Positive: Rubella Titre and Group Beta Strep, Negative: RPR, Hepatitis B, HIV, Chlamydia and Gonorrhea and Unknown: Herpes Type 1, Herpes Type 2 and Covid-19 Review of Systems Review of Systems Systems Reviewed: All systems reviewed, normal except as documented Past Medical History Surgical History SURGICAL: Negative Section Meds Home Medications and Allergies Allergies Allergy/AdvReac Type Severity Reaction Status Date / Time No Known Allergies Allergy Verified 12/19/24 04:35 OB Exam Physical Exam Vital signs: Pulse BP Pulse Ox 111 H 122/55 L 86 L 12/19/24 05:59 12/19/24 05:59 12/19/24 05:57 Narrative: Size equal to dates uterus non tender moderate regular every 3 minutes , contractions non tender FHR is category 1 feta presentation is vertex EFW by 12/15/2024 US is 3.0 kg approx OB Results Labs 12/19/24 12:22 Impressions Impression: 29 years at 38.6 weeks , spontaneous labor / GBS positive , did not get prophylaxis as she came in close to delivery / Rh positive / GDM on diet / anticipate vaginal delivery OB Assessment & Plan Assessment and Plan (1) Late care affecting in third trimester: Status: Acute (2) GDM (gestational diabetes mellitus): Status: Acute (3) : Status: Acute Additional Plan Induction method: none Plan: anticipate NVD (2) GDM (gestational diabetes mellitus) Qualifiers: Gestational diabetes mellitus control: oral hypoglycemic-controlled T rimester: third trimester Qualified Code(s): O24.415 - Gestational diabetes mellitus in , controlled by oral hypoglycemic drugs (3) Qualifiers: Weeks of gestation: 38 weeks Qualified Code(s): Z3A.38 - 38 weeks gestation of
--- NOTE | 2024-12-19 06:19 | PD.LDDELS ---
Data ([facility]) Data Hx Section: No Maternal Blood Type: A Pos Rubella Titre: Positive RPR: Non-reactive Labs: Positive: Group Beta Strep : 2 Para: 1 Term: 1 : 0 Livin Abortions: Spontaneous & Theraputic: 0 Delivery Data ([facility]line) Labor Data Initiation of labor: Spontaneous Induction/Augmentation Agent: None ROM date: 12/19/24 ROM time: 05:02 Amniotic membrane rupture type: Spontaneous Amniotic fluid description: Clear Delivery Data Onset of labor date: 12/19/24 Onset of labor time: 01:00 Complete dilation date: 12/19/24 Complete dilation time: 05:20 delivery date: 12/19/24 delivery time: 05:50 Placenta delivery date: 12/19/24 Placenta delivery time: 05:53 Stage 1 total time: Labor - Stage 1 Duration 4 hours and 20 minutes Delivered by: FROY Delivery nurse: Shashi ADDISON RN [place] nurse: Randy HAILE RN Internal Communications Specialist at delivery: No Delivery Method Delivery method: Normal Vaginal Delivery Presentation: Vertex Anesthesia Type Anesthesia Type: Local Placenta Placenta delivery description: Spontaneous cord blood collection: Cord Blood Type Episiotomy Episiotomy description: None Umbilical Cord cord description: 3 Vessels Data ([facility]) Data order: 1 [place]'s gender: Male 1 minute: 9 5 minutes: 9 Additional Comments Additional comments: please see the RN note for details Patient delivered a vigorous , viable baby
[2024-12-19 06:24] LABS: Basophils # (Auto) 0.0 Thou/mm3 (0.0-0.2); Basophils % (Auto) 0 % (0-2.5); Eosinophils # (Auto) 0.0 Thou/mm3 (0.0-0.5); Eosinophils % (Auto) 0 % (0-10); Hematocrit 34.7 % (36.0-46.0); Hemoglobin 12.6 g/dL (12.0-16.0); Immature Granulocytes Auto 0.15 Thou/mm3 (0.00-0.00); Lymphocytes # (Auto) 1.3 Thou/mm3 (1.0-4.8); Lymphocytes % (Auto) 7 % (10-50); Mean Corpuscular HGB Conc 36.3 g/dl (31.0-37.0); Mean Corpuscular Hemoglobin 31.0 pg (25.0-35.0); Mean Corpuscular Volume 85 fL (80-100); Monocytes # (Auto) 0.7 Thou/mm3 (0.0-0.8); Monocytes % (Auto) 4 % (0-12); Neutrophils # (Auto) 16.1 Thou/mm3 (1.8-7.7); Neutrophils % (Auto) 88 % (37-80); Nucleated Red Blood Cell # 0.00 Thou/mm3 (0.00-0.00); Nucleated Red Blood Cell % 0 /100 WBC (0); Platelet Count 182 Thou/mm3 (140-440); RDW Standard Deviation 41.9 fL (36.4-46.3); Red Blood Count 4.07 Miln/mm3 (4.00-5.20); White Blood Count 18.3 Thou/mm3 (3.6-11.0)
[2024-12-19 07:00] LABS: Syphilis Nonreactive (Nonreactive)
[2024-12-19] MEDS: IBUPROFEN TAB 400 MG TABLET 800 MG PO ×2 (09:47→16:01)
[2024-12-19 12:45] LABS: Basophils # (Auto) 0.0 Thou/mm3 (0.0-0.2); Basophils % (Auto) 0 % (0-2.5); Eosinophils # (Auto) 0.1 Thou/mm3 (0.0-0.5); Eosinophils % (Auto) 0 % (0-10); Hematocrit 33.7 % (36.0-46.0); Hemoglobin 12.2 g/dL (12.0-16.0); Immature Granulocytes Auto 0.13 Thou/mm3 (0.00-0.00); Lymphocytes # (Auto) 1.1 Thou/mm3 (1.0-4.8); Lymphocytes % (Auto) 6 % (10-50); Mean Corpuscular HGB Conc 36.2 g/dl (31.0-37.0); Mean Corpuscular Hemoglobin 30.7 pg (25.0-35.0); Mean Corpuscular Volume 85 fL (80-100); Monocytes # (Auto) 0.9 Thou/mm3 (0.0-0.8); Monocytes % (Auto) 5 % (0-12); Neutrophils # (Auto) 16.0 Thou/mm3 (1.8-7.7); Neutrophils % (Auto) 88 % (37-80); Nucleated Red Blood Cell # 0.00 Thou/mm3 (0.00-0.00); Nucleated Red Blood Cell % 0 /100 WBC (0); Platelet Count 175 Thou/mm3 (140-440); RDW Standard Deviation 41.1 fL (36.4-46.3); Red Blood Count 3.98 Miln/mm3 (4.00-5.20); White Blood Count 18.1 Thou/mm3 (3.6-11.0)
[2024-12-20] VITALS: BP 106/68; PULSE 74; RESP 19; TEMP 36.6; O2SAT 97
[2024-12-20] MEDS: IBUPROFEN TAB 400 MG TABLET 800 MG PO ×3 (01:09→18:16)
[2024-12-20 01:25] LABS: Amphetamine/Metham Scrn,Ur OB Negative (Negative); Benzoylecgonine Screen, Ur OB Negative (Negative); Opiate Screen,Urine OB Negative (Negative); THC Screen,Urine OB Negative (Negative)
[2024-12-20 03:35] VITALS: BP 102/65; PULSE 81; RESP 17; TEMP 36.6; O2SAT 97
[2024-12-20 07:10] VITALS: BP 107/72; PULSE 76; RESP 18; TEMP 36.9; O2SAT 98
[2024-12-20] MEDS: PRENATAL VITAMIN/FE FUM/FA TABLET 1 TAB PO (08:13)
[2024-12-20 11:20] VITALS: BP 108/64; PULSE 74; RESP 18; TEMP 36.8; O2SAT 98
--- NOTE | 2024-12-20 11:25 | ESPR_ITS ---
Subjective Subjective Interval history: Patient doing well overall. Minimal discomfort- mostly in coccyx area. She is ambulating no lightheadedness/dizziness. Voiding spontaneously, no issues. Tolerating regular diet without nausea/vomiting. Lochia tapering as expected. No fevers/chills, no CP/SOB. Exam Vital Signs Temp Pulse Resp BP Pulse Ox O2 Del Method 98.5 F 76 18 107/72 98 Room Air 12/20/24 07:10 12/20/24 07:10 12/20/24 07:10 12/20/24 07:10 12/20/24 07:10 12/20/24 07:10 Narrative Exam General: well developed, well nourished, no acute distress, conversant Cardiac: normal heart rate Lungs: breathing without distress Abdomen: soft, post-gravid, non-tender, no rebound or guarding, Fundus firm at u-3cm. Extremities: no pain with palpation of calves, trace edema of BLE Objective Labs 12/19/24 12:22 Labs: Laboratory Results - last 24 hr 12/19/24 12/19/24 00:55 12:22 WBC 18.1 H RBC 3.98 L Hgb 12.2 Hct 33.7 L MCV 85 MCH 30.7 MCHC 36.2 RDW Std Deviation 41.1 Plt Count 175 Neut % (Auto) 88 H Lymph % (Auto) 6 L [place] % (Auto) 5 Eos % (Auto) 0 Baso % (Auto) 0 Neut # (Auto) 16.0 H Lymph # (Auto) 1.1 [place] # (Auto) 0.9 H Eos # (Auto) 0.1 Baso # (Auto) 0.0 Immature Gran # (Auto) 0.13 H Absolute Nucleated RBC 0.00 Immature Gran % 1 H Nucleated RBC % 0 Urine Opiates Screen Negative U Amphetamin/Meth Scrn Negative U Cocaine Metab Screen Negative U Marijuana (THC) Screen Negative Assessment & Plan Problem List (1) Vaginal delivery: Status: Acute Assessment and plan: Tabatha is a 29yo G2 nowP2 s/p uncomplicated after presenting in labor, doing well on PPD 1. Vitals wnl, benign exam. Hemodynamically stable with no evidence of infection. Appropriate change in H/H from 12.6 to 12.2. 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
[2024-12-20 19:30] VITALS: BP 117/77; PULSE 60; RESP 18; TEMP 37; O2SAT 98
[2024-12-21] MEDS: ACETAMINOPHEN 325 MG TABLET 650 MG PO (00:59)
[2024-12-21 04:17] VITALS: BP 96/60; PULSE 61; RESP 19; TEMP 36.7; O2SAT 98
--- NOTE | 2024-12-21 05:13 | ESDS_ITS ---
DS: Providers Provider Date of admission: 12/19/24 04:57 Primary care physician: Physician No Primary/Family Admitting Provider: Carrie Oshea MD Attending Provider on Admission: Yessica Garza MD Consults: 12/19/24 07:18 Referral Routine Comment: late to care Attending Provider on DC: Yessica Garza MD Discharging Provider: eYssica Garza MD DS: Diagnosis Discharge Diagnosis (1) Vaginal delivery: Status: Acute (2) Positive GBS test: Status: Acute (3) Late care affecting in third trimester: Status: Acute (4) GDM (gestational diabetes mellitus): Status: Acute Problem List Completed Was Problem List Reviewed/Reconciled?: Yes Summary/Hosp Course Brief History: Tabatha is a 29yo G2 nowP2 s/p uncomplicated after presenting in labor, doing well on PPD 2. Vitals wnl, benign exam. Hemodynamically stable with no evidence of infection. Appropriate change in H/H from 12.6 to 12.2. She has had an uncomplicated course, meeting all milestones and feels ready for discharge home. She is ambulating without lightheadedness, tolerating regular diet no n/v, spontaneously voiding without issue. She has no chest pain or shortness of breath. No fevers or chills. Having some tailbone discomfort m anaged with motrin. complicated by: -A2GDM treated with metformin -GBS positive -Late PNC -BMI 37 Peripartum Data Delivery Method: Normal Vaginal Delivery Episiotomy Description: None Status at Discharge Functional status at discharge: independent ambulation Overall status at discharge: patient is back to baseline Time Spent with Patient Time attestation: Total time spent providing and/or coordinating discharge services: Exam Vital Signs Temp Pulse Resp BP Pulse Ox O2 Del Method 98.6 F 60 18 117/77 98 Room Air 12/20/24 19:30 12/20/24 19:30 12/20/24 19:30 12/20/24 19:30 12/20/24 19:30 12/20/24 19:30 Narrative Exam General: well developed, well nourished, no acute distress, conversant Cardiac: normal heart rate Lungs: breathing without distress Abdomen: soft, post-gravid, non-tender, no rebound or guarding, Fundus firm at u-3cm. Extremities: no pain with palpation of calves, trace edema of BLE Discharge Plan Plan Patient Disposition: HOME (Self Care) Patient condition on transfer: Stable Prescriptions/Referrals Prescriptions/Med Rec: New ibuprofen 600 mg tablet 600 mg PO Q6H PRN (Reason: PAIN 1-6 OR FEVER > 101) 10 Days Qty: 20 0RF docusate sodium [Colace] 100 mg capsule 100 mg PO BID Qty: 20 0RF Continued Classic 28 mg iron- 800 mcg tablet 1 tab PO DAILY 90 Days Qty: 90 6RF Discontinued metformin 500 mg tablet 500 mg PO BID Qty: 60 0RF No Action (DME) Blood Glucose Test Strip See Rx Instructions .MEDSUPPLY Qty: 30 0RF Rx Instructions: As directed (DME) Blood Glucose Test Strip See Rx Instructions .MEDSUPPLY Qty: 10 0RF Rx Instructions: As directed (DME) lancets Misc See Rx Instructions .MEDSUPPLY Qty: 100 0RF Rx Instructions: As directed (DME) blood-glucose meter Kit See Rx Instructions .MEDSUPPLY Qty: 1 0RF Rx Instructions: As directed. Fasting and i hour after meals 4 tmes a day Referrals: No Primary/Family,Physician [Primary Care Provider] Patient/Caregiver Discharge Instructions Discharge Activity: activity as tolerated and other Other Discharge Activity Instructions:: vaginal rest and no heavy lifting more than 10 pounds for 6 weeks Other Discharge Diet Instructions: regular Education Materials: After a Vaginal Print Language: [place] Activity Restrictions/Additional Instructions: follow up with your obgyn in 4 to 6 weeks, call clinic for appointment Stand Alone Forms: Linda Award Info., Patient Portal Info Letter Discharge Order Discharge Orders: Discharge (Routine); Ordered 12/21/24 Ordered By: Yessica Garza Planned Discharge Date 12/21/24 (4) GDM (gestational diabetes mellitus) Qualifiers: Gestational diabetes mellitus control: oral hypoglycemic-controlled Trimester: third trimester Qualified Code(s): O24.415 - Gestational diabetes mellitus in , controlled by oral hypoglycemic drugs
[2024-12-21] MEDS: HYDROcodone/APAP 5/325 TABLET 2 TAB PO (05:19)
[2024-12-21 07:30] VITALS: BP 93/60; PULSE 65; RESP 18; TEMP 36.6; O2SAT 99
[2024-12-21] MEDS: PRENATAL VITAMIN/FE FUM/FA TABLET 1 TAB PO (08:26)
--- NOTE | 2024-12-21 09:54 | PC.CC ---
Patient is a 29 year-old, female, presents to the hospital to deliver her baby boy. HEAD BONE GRINDER received a referral for concerns for late to care at 36 weeks. HEAD BONE GRINDER, Jessica, made [id number] contact to complete an assessment due to concerns of late to care.. HEAD BONE GRINDER introduced herself, role in the agency, reason for visit, and discussed limits of confidentiality. Patient appeared alert and oriented to self, time, place, and situation. Patient made good eye contact. Patient was cooperative. Patient?s behavior appeared ordinary. No signs of delusions or hallucinations. Patient reports the father of the baby is her , Fredi Miller but he is currently in [place]. Patient confirmed information on demographics. Patient reports she was not late to care as she was receiving care in [place] but not until she was 6 month as she did not know she was until then. She disclosed she is irregular with her monthly cycles. She reports she came to the [place] on November 07, [place]24 and has received consistent care since. HEAD BONE GRINDER provided psychoeducation regarding baby blues and Post- Depression, as well as counseling groups [facility]. SW provided community resources: Warm Line and Crisis Line. Patient denied history with CWS as this is her first child. Patient denied history of domestic violence. Patient reports she has all the supplies she needs for her new-born and is receiving Welfare and SNAP. Patient reports her support system includes husbands family. ASW provided update to bedside EDY Gomez.
== END 2024-12-21 11:57 | disposition home or self-care (01) | DRG 560 ==
LOC: S4SX 11:08 → S4NX 14:00
PROVIDERS: Admitting Provider Obstetrics & Gynecology; Visit Provider Obstetrics & Gynecology
DX: O24.429 Gestational diabetes mellitus in childbirth, unspecified control (principal); Z37.0 Single live birth; Z3A.38 38 weeks gestation of pregnancy; O99.824 Streptococcus B carrier state complicating childbirth; Z79.84 Long term (current) use of oral hypoglycemic drugs
CPT/HCPCS: 36415; 59025; 80307; 85025; 86780; 86850; 86900; 86901; J2590; J3490; J7120; S0191; A9270